=== PATIENT | female | born 1995 | race Caucasian/White ===

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

== ENCOUNTER 2017-01-11 12:57 | Emergency (ER) | payer OTHER ==
[~2017-01-11] VITALS: Ht 162.6 cm; Wt 87.1 kg
[~2017-01-11 12:57] MED LIST: HYDR-971 PO; NITR100C62 PO; ONDA4TAB7 PO
--- NOTE | 2017-01-11 13:12 | PHYS DOC ---
Past Medical History Past Medical History: No Pertinent History Past Surgical History: Tonsillectomy Additional Past Surgical Histo: hernia repair and gastric sleeve Alcohol Use: None Drug Use: None Adult General Chief Complaint Chief Complaint: ABDOMINAL PAIN IN [facility] HPI Patient is a 21 year old female who presents with vaginal bleeding and cramps. She states she is partially 5 weeks . She was seen a couple weeks ago by her primary care physician and confirmed her and she was told to follow-up with her OB at [place]. She states in September she had a gastric sleeve placed by Dr. Reno. She states that she's had some nausea over since her gastric sleeve was placed so she's not sure if it's her gastric sleeve for her is causing some of her nausea. She denies any vomiting. She states yesterday she noticed a drop of blood in her underwear and then today when she wiped she noticed some more blood. She states she's been having cramps in her bilateral pelvic area also. She states her last sexual intercourse was approximately 3 days ago. 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 She states she's never been before. Review of Systems Review of Systems Constitutional: Denies fever or chills [] Eyes: Denies change in visual acuity, redness, or eye pain [] HENT: Denies nasal congestion or sore throat [] Respiratory: Denies cough or shortness of breath [] Cardiovascular: No additional information not addressed in HPI [] GI: Denies abdominal pain, nausea, vomiting, bloody stools or diarrhea [] : Denies dysuria or hematuria [] Musculoskeletal: Denies back pain or joint pain [] Integument: Denies rash or skin lesions [] Neurologic: Denies headache, focal weakness or sensory changes [] Endocrine: Denies polyuria or polydipsia [] Allergies Allergies Allergies Coded Allergies Type Severity Reaction Last Updated Verified No Known Drug Allergies 11/08/14 No Physical Exam Physical Exam Constitutional: Well developed, well nourished, no acute distress, non-toxic appearance. [] HENT: Normocephalic, atraumatic, bilateral external ears normal, oropharynx moist, no oral exudates, nose normal. [] Eyes: PERRLA, EOMI, conjunctiva normal, no discharge. [] Neck: Normal range of motion, no tenderness, supple, no stridor. [] Cardiovascular:Heart rate regular rhythm, no murmur [] Lungs & Thorax: Bilateral breath sounds clear to auscultation [] Abdomen/pelvic: Bowel sounds normal, soft, no tenderness, no masses, no pulsatile masses. Pelvic area shows normal external genitalia, no active bleeding noted, no cervical motion tenderness or adnexal tenderness appreciated Skin: Warm, dry, no erythema, no rash. [] Back: No tenderness, no CVA tenderness. [] Extremities: No tenderness, no cyanosis, no clubbing, ROM intact, no edema. [] Neurologic: Alert and oriented X 3, normal motor function, normal sensory function, no focal deficits noted. [] Psychologic: Affect normal, judgement normal, mood normal. [] Current Patient Data Vital Signs Vital Signs Date Time Temp Pulse Resp B/P (MAP) Pulse Ox O2 Delivery O2 Flow Rate FiO2 01/11/17 16:00 100 22 143/88 (106) 100 Room Air 01/11/17 13:02 98.0 98.0 Lab Values Laboratory Tests Test 01/11/17 12:16 01/11/17 13:00 01/11/17 13:40 POC Urine HCG, Qualitative Hcg positive (Negative) Urine Collection Type Unknown Urine Color Jacqueline Urine Clarity Clear Urine pH 5.5 Urine Specific [place] >=1.030 Urine Protein Negative mg/dL (NEG-TRACE) Urine Glucose (UA) Negative mg/dL (NEG) Urine Ketones (Stick) Trace mg/dL (NEG) Urine Blood Large (NEG) Urine Nitrite Negative (NEG) Urine Bilirubin Small (NEG) Urine Urobilinogen Dipstick 1.0 mg/dL (0.2 mg/dL) Urine Leukocyte Esterase Small (NEG) Urine RBC 11-20 /HPF (0-2) Urine WBC 5-10 /HPF (0-4) Urine Squamous Epithelial Cells Many /LPF Urine Bacteria Few /HPF (0-FEW) Urine Mucus Marked /LPF White Blood Count 9.9 x10^3/uL (4.0-11.0) Red Blood Count 5.04 x10^6/uL (3.50-5.40) Hemoglobin 14.9 g/dL (12.0-15.5) Hematocrit 44.5 % (36.0-47.0) Mean Corpuscular Volume 88 fL (79-100) Mean Corpuscular Hemoglobin 30 pg (25-35) Mean Corpuscular Hemoglobin Concent 34 g/dL (31-37) Red Cell Distribution Width 13.7 % (11.5-14.5) Platelet Count 317 x10^3/uL (140-400) Neutrophils (%) (Auto) 66 % (31-73) Lymphocytes (%) (Auto) 26 % (24-48) Monocytes (%) (Auto) 6 % (0-9) Eosinophils (%) (Auto) 2 % (0-3) Basophils (%) (Auto) 1 % (0-3) Neutrophils # (Auto) 6.5 x10^3uL (1.8-7.7) Lymphocytes # (Auto) 2.5 x10^3/uL (1.0-4.8) Monocytes # (Auto) 0.6 x10^3/uL (0.0-1.1) Eosinophils # (Auto) 0.2 x10^3/uL (0.0-0.7) Basophils # (Auto) 0.1 x10^3/uL (0.0-0.2) Prothrombin Time 14.0 SEC (11.7-14.0) Prothrombin Time INR 1.2 (0.8-1.1) H PTT 31 SEC (24-38) Maternal Serum HCG Beta Subunit 14 mIU/mL (0-5) H Sodium Level 144 mmol/L (136-145) Potassium Level 3.6 mmol/L (3.5-5.1) Chloride Level 107 mmol/L (98-107) Carbon Dioxide Level 25 mmol/L (21-32) Anion Gap 12 (6-14) Blood Urea Nitrogen 6 mg/dL (7-20) L Creatinine 0.6 mg/dL (0.6-1.0) Estimated GFR (Cockcroft-Gault) 128.8 Glucose Level 89 mg/dL (70-99) Calcium Level 9.1 mg/dL (8.5-10.1) Total Bilirubin 0.4 mg/dL (0.2-1.0) Direct Bilirubin 0.1 mg/dL (0.0-0.2) Aspartate Amino Transferase (AST) 15 U/L (15-37) Alanine Aminotransferase (ALT) 16 U/L (14-59) Alkaline Phosphatase 99 U/L (46-116) Total Protein 7.5 g/dL (6.4-8.2) Albumin 3.9 g/dL (3.4-5.0) Laboratory Tests 01/11/17 13:40 Laboratory Tests 01/11/17 13:40 Microbiology 01/11/17 Wet Prep - Final, Complete Microbiology 01/11/17 Wet Prep - Final, Complete EKG EKG [] Radiology/Procedures Radiology/Procedures [facility] [address] [place], [place] [id number] IMAGING REPORT Signed PATIENT: CAESAR MARTINEZ ACCOUNT: [id number] : 1995 LOCATION: ER AGE: 21 SEX: F EXAM STATUS: REG ER ORD. PHYSICIAN: ULISES MATTHEWS MD REASON: vaginal bleeding PROCEDURE: OB <14 WKS W/TV Examination: Obstetric ultrasound is 14 weeks History: History of brownish spotting, cramps Comparison: None available. Findings: The uterus measures 6.9 x 3.2 x 3.7 cm. The endometrium measures 6.5 mm in transverse dimension. The right ovary measures 3.0 x 1.5 x 1.7 cm. The left ovary measures 2.6 x1.6 x 1.5 cm. Blood flow identified in the right and left ovaries. Intrauterine gestational sac is not identified. Impression: Intrauterine gestational sac is not identified. If patient is , differential includes very early , failed first trimester or an ectopic . An ectopic gestational sac is not identified. Follow-up serial quantitative beta-hCG levels and follow-up ultrasound is recommended. DICTATED and SIGNED BY: THEO MILES MD DATE: 01/11/17 3490 CC: ULISES MATTHEWS MD; HEATHER GARVEY MD ~ Impressions: Threatened miscarriage UTI and Course & Med Decision Making Course & Med Decision Making Pertinent Labs and Imaging studies reviewed. (See chart for details) RUN DATE: 01/11/17 PAGE 1 RUN TIME: 1415 [facility] [address] [place] [address] Earl Diaz M.D., Associate Merchandiser PATIENT: CAESAR MARTINEZ ACCT: [id number] LOC: DARA U : [id number] AGE/SX: ROOM: REG : 01/11/[address]: ULISES MATTHEWS MD : 1995 BED: DIS : STATUS: QUIQUE DIAMOND TLOC: SPEC #: [id number] FRANCISCO: 01/11/17 STATUS: COMP REQ #: [id number] RECD: 01/11/[address]: ULISES MATTHEWS MD SOURCE: VAGINAL ENTR: 01/11/17-[address]: HEATHER GARVEY MD SPDESC: ORDERED: WET PREP COMMENTS: Has specimen been collected/obtained? Y Procedure Result WET PREP Final YEAST NONE SEEN TRICHOMONAS NONE SEEN CLUE CELLS NONE SEEN WBCS FEW RBCS MANY SQUAMOUS EPS MANY Ultrasound does not show an IUP. Her Quant is 14. Pelvic exam is unremarkable. She is likely having a miscarriage. Spoke with Dr. Guzmán recommends repeat Quant in 2 days. Patient is being discharged with nitrofurantoin twice a day for 7 days for bacteriuria. Return precautions given to her and her brother. They're in agreement to the plan of being discharged in stable condition this time. END OF REPORT Dragon Disclaimer Dragon Disclaimer This electronic medical record was generated, in whole or in part, using a voice recognition dictation system. Departure Departure Impression: Primary Impression: Vaginal bleeding in Disposition: 01 HOME, SELF-CARE Condition: STABLE Referrals: HEATHER GARVEY MD (PCP) Patient Instructions: - Urinary Tract Infection, Threatened Miscarriage, [id number] Additional Instructions: You will need to return to the ER in 2 days to have a beta Quant rechecked. This is a blood test. You will also have some bacteria in your urine that will need to be treated. You will be sent home with antibiotic for the next 7 days. Please return back to ER in 2 days for this blood check. Return sooner for worsening bleeding, increasing pain, fevers or other concerns. Scripts Nitrofurantoin Macrocrystal (NITROFURANTOIN) 100 Mg Capsule 1 CAP PO BID, #14 CAP Prov: ULISES MATTHEWS MD 01/11/17 Problem Qualifiers Primary Impression: Vaginal bleeding in Trimester: first trimester Qualified Codes: O46.91 - Antepartum hemorrhage, unspecified, first trimester ULISES MATTHEWS MD Jan 11, 2017 13:12
[2017-01-11 13:21] LABS: BILIRUBIN,URINE SMALL (NEG); GLUCOSE,URINE NEGATIVE (NEG); NITRITE,URINE NEGATIVE (NEG); PH,URINE 5.5; PROTEIN,URINE NEGATIVE (NEG-TRACE)
[2017-01-11 13:32] LABS: BACTERIA,URINE FEW /HPF (0-FEW); SQUAMOUS EPITHELIAL CELL,UR MANY /LPF
[2017-01-11 13:49] LABS: BASO # 0.1 x10^3/uL (0.0-0.2); BASO % 1 % (0-3); EOS % 2 % (0-3); HEMATOCRIT 44.5 % (36.0-47.0); HEMOGLOBIN 14.9 g/dL (12.0-15.5); LYMPH # 2.5 x10^3/uL (1.0-4.8); LYMPH % 26 % (24-48); MEAN CORPUSCULAR HEMOGLOBIN 30 pg (25-35); MEAN CORPUSCULAR HGB CONC 34 g/dL (31-37); MEAN CORPUSCULAR VOLUME 88 fL (79-100); MONO % 6 % (0-9); NEUT % 66 % (31-73); PLATELET COUNT 317 x10^3/uL (140-400); RED BLOOD COUNT 5.04 x10^6/uL (3.50-5.40); RED CELL DISTRIBUTION WIDTH 13.7 % (11.5-14.5); WHITE BLOOD COUNT 9.9 x10^3/uL (4.0-11.0)
[2017-01-11 13:58] LABS: INR 1.2 (0.8-1.1)
[2017-01-11 14:01] LABS: CALCIUM 9.1 mg/dL (8.5-10.1); CREATININE 0.6 mg/dL (0.6-1.0); GFR 128.8; POTASSIUM 3.6 mmol/L (3.5-5.1)
[2017-01-11 14:08] LABS: ALBUMIN 3.9 g/dL (3.4-5.0); DIRECT BILIRUBIN 0.1 mg/dL (0.0-0.2); TOTAL BILIRUBIN 0.4 mg/dL (0.2-1.0); TOTAL PROTEIN 7.5 g/dL (6.4-8.2)
--- NOTE | 2017-01-11 15:12 | RAD ---
Examination: Obstetric ultrasound is 14 weeks History: History of brownish spotting, cramps Comparison: None available. Findings: The uterus measures 6.9 x 3.2 x 3.7 cm. The endometrium measures 6.5 mm in transverse dimension. The right ovary measures 3.0 x 1.5 x 1.7 cm. The left ovary measures 2.6 x1.6 x 1.5 cm. Blood flow identified in the right and left ovaries. Intrauterine gestational sac is not identified. Impression: Intrauterine gestational sac is not identified. If patient is , differential includes very early , failed first trimester or an ectopic . An ectopic gestational sac is not identified. Follow-up serial quantitative beta-hCG levels and follow-up ultrasound is recommended.
[2017-01-11 16:00] VITALS: BP 143/88
[2017-01-11] MEDS ORDERED: NITR100C PO (16:10)
== END 2017-01-11 16:15 | disposition home or self-care (01) ==
LOC: ER 12:57
DX: O46.91 Antepartum hemorrhage, unspecified, first trimester (principal); R10.2 Pelvic and perineal pain; Z98.890 Other specified postprocedural states; Z3A.01 Less than 8 weeks gestation of pregnancy
CPT/HCPCS: 36415; 76801; 76817; 80048; 80076; 81001; 81025; 84702; 85027; 85610; 85730; 86900; 86901; 87086; 87491; 87591; 99285; Q0111

== ENCOUNTER 2017-04-08 01:26 | Emergency (ER) | payer OTHER ==
[~2017-04-08] VITALS: Ht 160 cm; Wt 81.6 kg
[~2017-04-08 01:26] MED LIST changes: +NITR100C PO
[2017-04-08 01:47] VITALS: BP 130/67
[2017-04-08 01:53] LABS: BILIRUBIN,URINE NEGATIVE (NEG); GLUCOSE,URINE NEGATIVE (NEG); NITRITE,URINE NEGATIVE (NEG); PROTEIN,URINE NEGATIVE (NEG-TRACE); UROBILINOGEN,URINE 0.2 mg/dL (0.2 mg/dL)
[2017-04-08 02:07] LABS: BACTERIA,URINE MANY /HPF (0-FEW); WBC,URINE 20-40 /HPF (0-4)
[2017-04-08 02:08] LABS: SQUAMOUS EPITHELIAL CELL,UR MANY /LPF
[2017-04-08 02:22] LABS: BARBITURATES NEG (NEG); BENZODIAZEPINES NEG (NEG); CANNABINOIDS POS (NEG); COCAINE NEG (NEG); METHADONE NEG (NEG); OPIATES NEG (NEG); PHENCYCLIDINE NEG (NEG)
[2017-04-08] MEDS ORDERED: IV NORMAL SALINE 1000ML BAG 1,000 ML IV ONE (02:30)
[2017-04-08] MEDS ORDERED: ACETAMINOPHEN 325 MG TABLET. PO ONE (02:30)
[2017-04-08] MEDS ORDERED: METOCLOPRAMIDE HCL 10 MG/2 ML VIAL. IV ONE (02:30)
[2017-04-08 02:54] LABS: BASO % 0 % (0-3); EOS % 1 % (0-3); HEMATOCRIT 40.4 % (36.0-47.0); HEMOGLOBIN 13.9 g/dL (12.0-15.5); LYMPH % 23 % (24-48); MEAN CORPUSCULAR HEMOGLOBIN 30 pg (25-35); MEAN CORPUSCULAR HGB CONC 34 g/dL (31-37); MEAN CORPUSCULAR VOLUME 87 fL (79-100); MONO % 4 % (0-9); NEUT % 72 % (31-73); PLATELET COUNT 319 x10^3/uL (140-400); RED BLOOD COUNT 4.64 x10^6/uL (3.50-5.40); RED CELL DISTRIBUTION WIDTH 13.4 % (11.5-14.5); WHITE BLOOD COUNT 13.2 x10^3/uL (4.0-11.0)
[2017-04-08 03:07] LABS: CALCIUM 9.7 mg/dL (8.5-10.1); CREATININE 0.5 mg/dL (0.6-1.0); GFR 158.9; POTASSIUM 3.5 mmol/L (3.5-5.1)
--- NOTE | 2017-04-08 03:22 | PHYS DOC ---
Past Medical History Past Medical History: No Pertinent History Past Surgical History: Tonsillectomy Additional Past Surgical Histo: hernia repair and gastric sleeve Alcohol Use: None Drug Use: None Adult General Chief Complaint Chief Complaint: ABDOMINAL PAIN HPI HPI Patient is a 21 year old female presents with complaints of syncopal episode as well as low abdominal cramping. Patient denies any fevers, chills, rashes, trauma. Patient has complaints of mild headache. Patient denies any sick contacts. Patient denies alcohol or drug use. Patient denies any vaginal discharge or vaginal bleeding Review of Systems Review of Systems Constitutional: Denies fever or chills [] Eyes: Denies change in visual acuity, redness, or eye pain [] HENT: Denies nasal congestion or sore throat. Denies nuchal rigidity Respiratory: Denies cough or shortness of breath [] Cardiovascular: No chest pain GI: Denies abdominal pain, nausea, vomiting, bloody stools or diarrhea. Yes to abdominal cramping : Denies dysuria or hematuria [] Musculoskeletal: Denies back pain or joint pain [] Integument: Denies rash or skin lesions [] Neurologic: Denies focal weakness or sensory changes . Yes to mild headache Endocrine: Denies polyuria or polydipsia [] Current Medications Current Medications Current Medications Medications (Trade) Dose Ordered Sig/Arturo Start Time Stop Time Status Last Admin Dose Admin Acetaminophen (Tylenol) 650 mg 1X ONCE 04/08/17 02:30 04/08/17 02:31 DC 04/08/17 03:01 650 MG Metoclopramide HCl (Reglan) 10 mg 1X ONCE 04/08/17 02:30 04/08/17 02:31 DC 04/08/17 03:01 10 MG Sodium Chloride 1,000 ml @ 1,000 mls/hr 1X ONCE 04/08/17 02:30 04/08/17 03:29 DC 04/08/17 03:00 1,000 MLS/HR Allergies Allergies Allergies Coded Allergies Type Severity Reaction Last Updated Verified No Known Drug Allergies 11/08/14 No Physical Exam Physical Exam Constitutional: Well developed, well nourished, no acute distress, non-toxic appearance. [] HENT: Normocephalic, atraumatic, bilateral external ears normal, oropharynx moist, no oral exudates, nose normal. [] Eyes: PERRLA, pupils are dilated, EOMI, conjunctiva normal, no discharge. [] Neck: Normal range of motion, no tenderness, supple, no stridor. [No LAD no meningeal signs Cardiovascular:Heart rate regular rhythm, no murmur [] Lungs & Thorax: Bilateral breath sounds clear to auscultation [] Abdomen: Bowel sounds normal, soft, no tenderness, no masses, no pulsatile masses. [] Skin: Warm, dry, no erythema, no rash. [] Back: No tenderness, no CVA tenderness. [] Extremities: No tenderness, no cyanosis, no clubbing, ROM intact, no edema. [] Neurologic: Alert and oriented X 3, normal motor function, normal gross sensory function, no focal deficits noted. [] Psychologic: Affect normal, judgement normal, mood normal. [] Current Patient Data Vital Signs Vital Signs Date Time Temp Pulse Resp B/P (MAP) Pulse Ox O2 Delivery O2 Flow Rate FiO2 04/08/17 01:47 98.3 103 16 130/67 (88) 98 Room Air 98.3 Lab Values Laboratory Tests Test 04/08/17 01:40 04/08/17 01:47 04/08/17 02:45 Urine Collection Type Unknown Urine Color Yellow Urine Clarity Clear Urine pH 6.0 Urine Specific [place] 1.020 Urine Protein Negative mg/dL (NEG-TRACE) Urine Glucose (UA) Negative mg/dL (NEG) Urine Ketones (Stick) >=80 mg/dL (NEG) Urine Blood Negative (NEG) Urine Nitrite Negative (NEG) Urine Bilirubin Negative (NEG) Urine Urobilinogen Dipstick 0.2 mg/dL (0.2 mg/dL) Urine Leukocyte Esterase Moderate (NEG) Urine RBC 6-10 /HPF (0-2) Urine WBC 20-40 /HPF (0-4) Urine Squamous Epithelial Cells Many /LPF Urine Bacteria Many /HPF (0-FEW) Urine Mucus Mod /LPF Urine Opiates Screen Neg (NEG) Urine Methadone Screen Neg (NEG) Urine Barbiturates Neg (NEG) Urine Phencyclidine Screen Neg (NEG) Urine Amphetamine/Methamphetamine Pos (NEG) Urine Benzodiazepines Screen Neg (NEG) Urine Cocaine Screen Neg (NEG) Urine Cannabinoids Screen Pos (NEG) Urine Ethyl Alcohol Neg (NEG) POC Urine HCG, Qualitative Hcg positive (Negative) White Blood Count 13.2 x10^3/uL (4.0-11.0) H Red Blood Count 4.64 x10^6/uL (3.50-5.40) Hemoglobin 13.9 g/dL (12.0-15.5) Hematocrit 40.4 % (36.0-47.0) Mean Corpuscular Volume 87 fL (79-100) Mean Corpuscular Hemoglobin 30 pg (25-35) Mean Corpuscular Hemoglobin Concent 34 g/dL (31-37) Red Cell Distribution Width 13.4 % (11.5-14.5) Platelet Count 319 x10^3/uL (140-400) Neutrophils (%) (Auto) 72 % (31-73) Lymphocytes (%) (Auto) 23 % (24-48) L Monocytes (%) (Auto) 4 % (0-9) Eosinophils (%) (Auto) 1 % (0-3) Basophils (%) (Auto) 0 % (0-3) Neutrophils # (Auto) 9.5 x10^3uL (1.8-7.7) H Lymphocytes # (Auto) 3.0 x10^3/uL (1.0-4.8) Monocytes # (Auto) 0.6 x10^3/uL (0.0-1.1) Eosinophils # (Auto) 0.1 x10^3/uL (0.0-0.7) Basophils # (Auto) 0.0 x10^3/uL (0.0-0.2) Sodium Level 137 mmol/L (136-145) Potassium Level 3.5 mmol/L (3.5-5.1) Chloride Level 102 mmol/L (98-107) Carbon Dioxide Level 26 mmol/L (21-32) Anion Gap 9 (6-14) Blood Urea Nitrogen 4 mg/dL (7-20) L Creatinine 0.5 mg/dL (0.6-1.0) L Estimated GFR (Cockcroft-Gault) 158.9 Glucose Level 89 mg/dL (70-99) Calcium Level 9.7 mg/dL (8.5-10.1) Laboratory Tests 04/08/17 02:45 Laboratory Tests 04/08/17 02:45 EKG EKG 0315 sinus rhythm, 78, no STEMI[] Radiology/Procedures Radiology/Procedures Single viable intrauterine gestation with a mean gestational age estimated at 8 weeks 6 days with an estimated date of confinement of 11/12/2017. This corresponds adequately with clinical dates.[] Course & Med Decision Making Course & Med Decision Making Pertinent Labs and Imaging studies reviewed. (See chart for details) [id number] patient in no acute distress, sitting up in the bed, in no discomfort. Patient informal the results of the ultrasound as well as the labs. In private, I have discussed the results of the urine toxicology test with the patient. Patient states she has not used marijuana in over 4 weeks and she does not have an explanation regarding the positive methamphetamine test. I counseled the patient regarding drug use in [] Dragon Disclaimer Dragon Disclaimer This electronic medical record was generated, in whole or in part, using a voice recognition dictation system. Departure Departure Impression: Primary Impression: UTI in Additional Impressions: Syncope Drug abuse Dehydration Disposition: HOME, SELF-CARE Condition: IMPROVED Referrals: HEATHER GARVEY MD (PCP) Please follow-up with your doctor for recheck and reevaluation in one to 2 days Patient Instructions: Abdominal Pain During , Dehydration, Adult, Drug Abuse, FAQs, Syncope, Urinary Tract Infection Scripts Nitrofurantoin Monohyd/M-Cryst (MACROBID 100 MG CAPSULE) 100 Mg Capsule 1 CAP PO BID, #14 CAP Prov: Teddy WELCH MD 04/08/17 Problem Qualifiers Teddy WELCH MD Apr 08, 2017 03:22
--- NOTE | 2017-04-08 04:05 | RAD ---
Obstetric ultrasound less than 14 weeks: Reason for examination: Low back pain and abdominal pain with . Transabdominal and transvaginal ultrasound examination of the pelvis was performed. Transabdominally, the uterus measures 8.8 x 5.0 x 6.5 cm in greatest dimension. There appears to be intrauterine gestational sac present measuring 5.3 x 1.6 cm in greatest dimension. pole and yolk sac are identified. Cardiac activity seen with a rate of 160 bpm. Transvaginally, the intrauterine gestational sac contains fetus and yolk sac. [place]-rump length is estimated at 2.1 cm corresponding to gestational age of 8 weeks 6 days. There is no evidence of subchorionic hemorrhage. In the left adnexa, the left ovary is visualized and appears to measure 2.2 x 1.4 x 1.4 cm in greatest dimension and shows good vascular flow. The right ovary is not identified. No free fluid is seen. IMPRESSION: Single viable intrauterine gestation with a mean gestational age estimated at 8 weeks 6 days with an estimated date of confinement of 11/12/2017. This corresponds adequately with clinical dates. Electronically signed by: Sonja Ashraf MD (04/08/2017 4:01 AM) [id number]
[2017-04-08] MEDS ORDERED: NITR100C62 PO (04:39)
--- NOTE | 2017-04-08 07:01 | EKG ---
[facility] [address] [place] [address] Test Date: 2017-04-08 Test Time: 03:14:44 Pat Name: CAESAR MARTINEZ Department: Room: Gender: F Research Physicist: : 1995 Requested By: Teddy WELCH Order Number: [id number] Reading MD: Sean Abdi Measurements Intervals [place] Rate: 78 P: 64 [place]: 150 QRS: 65 QRSD: 70 T: 20 QT: 374 QTc: 430 Interpretive Statements SINUS RHYTHM Electronically Signed On 04-30-2017 16:01:50 CDT by Sean Abdi
== END 2017-04-08 05:15 | disposition home or self-care (01) ==
LOC: ER 01:26
DX: O23.41 Unspecified infection of urinary tract in pregnancy, first trimester (principal); O26.891 Other specified pregnancy related conditions, first trimester; R55 Syncope and collapse; O99.281 Endocrine, nutritional and metabolic diseases complicating pregnancy, first trimester; E86.0 Dehydration; O99.321 Drug use complicating pregnancy, first trimester; F15.10 Other stimulant abuse, uncomplicated; Z3A.08 8 weeks gestation of pregnancy
CPT/HCPCS: 36415; 76801; 80048; 80307; 81001; 81025; 85025; 87086; 93005; 96361; 96374; 99285; J2765; J7030; G0479

== ENCOUNTER → 2017-06-11 | Outpatient (CLI) | payer OTHER ==
--- NOTE | 2017-06-11 12:39 | KCIC ---
OB ultrasound History: Uterine size discrepancy. Comparison: Ultrasound OB April 08, 2017. Findings: There is a single intrauterine gestation in cephalic presentation. The placenta is anterior in location without evidence of placenta previa. The amount of amniotic fluid appears appropriate. Amniotic fluid index is 10.4 cm. Cervix is closed with cervical length of 4.81 cm. Biometric data is as follows: BPD = 4.13 cm for 18 weeks 4 days. HC = 15.04 cm for 18 weeks 1 days. AC = 13.21 cm for 18 weeks 5 days. FL = 2.86 cm for 18 weeks 5 days. HC/AC = 1.14, within normal limits. Overall, the average ultrasound age is 18 weeks 4 days for an estimated date of delivery of November 08, 2017. Estimated gestational age by last menstrual period calculation is 17 weeks 5 days. Estimated weight is 252 +/- 37 grams. Optimal four-chamber view of the heart was not obtained. The estimated heart rate is 139 beats per minute. Bilateral upper and lower extremities are thought visualized. Three-vessel cord is not adequately documented. Cord insertion is not well documented. stomach and urinary bladder are identified. Both kidneys are thought visualized. The spine and brain are grossly unremarkable. Nose and lips are not well seen. gender appears male. Maternal ovaries are not visualized. IMPRESSION: 1. Single live intrauterine with average ultrasound age of 18 weeks 4 days. Estimated date of delivery is November 08, 2017. There has been appropriate interval growth. 2. Multiple structures were not well documented, which may be due to a variety of factors including early gestation and positioning. Follow-up imaging could be performed in approximately 4 weeks. Electronically signed by: Juan Carlos Renae MD (06/11/2017 12:36 PM) [place] [id number]
== END | disposition home or self-care (01) ==
LOC: KCIC US 08:51
PROVIDERS: ATTEND Obstetrics & Gynecology
DX: Z34.82 Encounter for supervision of other normal pregnancy, second trimester (principal); Z3A.18 18 weeks gestation of pregnancy
CPT/HCPCS: 76805; 76817

== ENCOUNTER 2017-10-19 02:28 | Observation (INO) | payer OTHER ==
[2017-10-19 03:01] LABS: BILIRUBIN,URINE NEGATIVE (NEG); CLARITY,URINE CLEAR; COLOR,URINE YELLOW; GLUCOSE,URINE NEGATIVE (NEG); NITRITE,URINE NEGATIVE (NEG); PH,URINE 6.5; PROTEIN,URINE NEGATIVE (NEG-TRACE)
[2017-10-19 03:11] LABS: BACTERIA,URINE MODERATE /HPF (0-FEW); RBC,URINE 0 /HPF (0-2); SQUAMOUS EPITHELIAL CELL,UR MANY /LPF
[2017-10-19] MEDS: IV RINGERS,LACTATED 1000ML 1,000 ML IV ×2 (06:40→07:51)
[2017-10-19] MEDS: hydrOXYzine PAMOATE 25 MG CAPSULE PO (08:13)
== END 2017-10-19 11:32 | disposition home or self-care (01) ==
LOC: 3 SO LND 02:28
DX: O42.913 Preterm premature rupture of membranes, unspecified as to length of time between rupture and onset of labor, third trimester (principal); O99.89 Other specified diseases and conditions complicating pregnancy, childbirth and the puerperium; M54.9 Dorsalgia, unspecified; Z3A.36 36 weeks gestation of pregnancy
CPT/HCPCS: 76816; 81001; 87086; 96360; 96361; G0378; G0379; J7120; Q0177

== ENCOUNTER 2017-11-03 15:03 | Observation (INO) | payer OTHER | END 2017-11-03 16:55 | disposition home or self-care (01) | LOC: 3 SO LND 15:03 | DX: O62.9 Abnormality of forces of labor, unspecified (principal); Z3A.38 38 weeks gestation of pregnancy | CPT/HCPCS: G0378; G0379 ==

== ENCOUNTER → 2018-12-23 | Outpatient (CLI) | payer OTHER ==
[2017-11-10 09:52] VITALS: BP 112/74
[~2018-12-23] MED LIST changes: +HYDR-3164 PO; -HYDR-971 PO; +IBUP800T19 PO
--- NOTE | 2018-12-25 08:23 | KCIC ---
Obstetrical ultrasound, 12/23/2018: HISTORY: Uterine size/date discrepancy There is a single intrauterine fetus in a cephalic orientation. The biparietal diameter measures 4.3 cm compatible with a gestational age of 19 weeks and 1 day. The average gestational age based on all the measurements is 19 weeks and 2 days yielding a sonographic EDC of 05/17/2019. Normal activity and heart motion were seen. A 4 chamber heart is evident demonstrating heart rate of 143 bpm. Fluid is identified in the bladder and stomach. The visualized portions of the kidneys and spine are unremarkable. A three-vessel umbilical cord is evident with a normal cord insertion site. The placenta lies posteriorly. Its lower margin lies approximately 2.5 cm from the internal cervical os. No placenta previa is evident. A normal amount of amniotic fluid is present with the CHASIDY calculated at 10. The cervical length was estimated at 5 cm. IMPRESSION: Single viable intrauterine fetus of 19-20 weeks gestational age as described above. Electronically signed by: Haroldo Swan MD (12/25/2018 8:20 AM) [facility]
== END | disposition home or self-care (01) ==
LOC: KCIC US 10:00
PROVIDERS: ATTEND Obstetrics & Gynecology
DX: O26.842 Uterine size-date discrepancy, second trimester (principal); Z3A.19 19 weeks gestation of pregnancy
CPT/HCPCS: 76805

== ENCOUNTER 2019-03-20 03:22 | Observation (INO) | payer OTHER ==
[2017-11-10 09:52] VITALS: BP 112/74
[~2019-03-20] VITALS: Ht 152.4 cm; Wt 98.0 kg
[2019-03-20 03:50] LABS: BILIRUBIN,URINE NEGATIVE (NEG); CLARITY,URINE CLEAR; COLOR,URINE YELLOW; NITRITE,URINE NEGATIVE (NEG); PROTEIN,URINE 30 mg/dL (NEG-TRACE); UROBILINOGEN,URINE 0.2 mg/dL (0.2 mg/dL)
[2019-03-20 03:55] LABS: SQUAMOUS EPITHELIAL CELL,UR MOD /LPF
[2019-03-20 03:56] LABS: BACTERIA,URINE FEW /HPF (0-FEW)
[2019-03-20 03:57] LABS: AMORPHOUS SEDIMENT,UR PRESENT /HPF
[2019-03-20 04:01] LABS: BARBITURATES NEG (NEG); BENZODIAZEPINES POS (NEG); CANNABINOIDS POS (NEG); COCAINE NEG (NEG); METHADONE NEG (NEG); OPIATES POS (NEG); PHENCYCLIDINE NEG (NEG)
[2019-03-20 04:02] LABS: AMNIO PT NEGATIVE
[2019-03-20 04:03] LABS: AMPHETAMINE/METHAMPHETAMINE NEG (NEG)
[2019-03-20] MEDS ORDERED: IV NORMAL SALINE 1000ML BAG 1,000 ML IV ONE (05:00)
[2019-03-20] MEDS ORDERED: cefTRIAXone IV Push 1 GM VIAL. IVP SCH (05:00)
[2019-03-20] MEDS: IV RINGERS,LACTATED 1000ML 1,000 ML IV PRN ×4 (05:58→22:35)
--- NOTE | 2019-03-20 10:23 | RAD ---
Examination: PREG MORE THAN OR EQ TO 14 WKS History: Bleeding. Low lying placenta on previous ultrasound. At 32 weeks gestation. Comparison/Correlation: 12/23/2018 ultrasound exam Findings: OB ultrasound exam was performed by transabdominal technique only as per referring physician request. Single living intrauterine gestation is present. The placenta is identified to 0.8 cm from the cervix. Cervical os appears to be closed. Maternal cervical length is 4.32 cm. Evaluation is limited due to positioning of the head about the placenta. Cephalic lie noted. heart rate is 131 bpm. Amniotic fluid index is 11.1 cm and normal in volume. motion identified. Estimated weight is 2102 g +/- 311 g. This corresponds to the 62nd percentile. EDC is 05/17/2019 by clinical age of 31 weeks 5 days. Ultrasound EDC is 05/10/2019 by average ultrasound age of 32 weeks 5 days. Cephalic index is 81.2. Head circumference to abdominal circumference ratio is 0.98. Femur length to biparietal diameter ratio 79.1. Femur length to head circumference ratio is 21.7. Femur length relates to head circumference ratio is 21.7 cm. Femur length to abdominal circumference ratio is 21.4. These ratios are within normal range. Biparietal diameter is 7.99 cm corresponding to 30 weeks 1 day gestation. Head circumference is 29.02 cm corresponding to 30 weeks 1 day gestation. Abdominal circumference is 29.56 cm corresponding to 33 weeks 4 days gestation. Femur length is 6.33 cm corresponding to 32 weeks 5 day gestation. Estimated weight corresponding to 33 weeks gestation. Impression: Single living intrauterine gestation is present with average ultrasound age of 32 weeks 5 days. This is 1 week greater than a clinical age. Low lying placenta is present along the maternal left side. Cervix is closed. Assessment is somewhat limited due to positioning of the cephalic lie and positioning of the head. No subchronic hemorrhage. Electronically signed by: Isaak Vargas MD (03/20/2019 10:20 AM) [facility]
[2019-03-20 11:17] LABS: BASO # 0.1 x10^3/uL (0.0-0.2); BASO % 0 % (0-3); EOS # 0.4 x10^3/uL (0.0-0.7); EOS % 2 % (0-3); HEMATOCRIT 29.7 % (36.0-47.0); HEMOGLOBIN 9.9 g/dL (12.0-15.5); LYMPH # 2.5 x10^3/uL (1.0-4.8); LYMPH % 15 % (24-48); MEAN CORPUSCULAR HEMOGLOBIN 28 pg (25-35); MEAN CORPUSCULAR HGB CONC 33 g/dL (31-37); MEAN CORPUSCULAR VOLUME 83 fL (79-100); MONO # 0.8 x10^3/uL (0.0-1.1); MONO % 5 % (0-9); NEUT # 13.3 x10^3/uL (1.8-7.7); NEUT % 78 % (31-73); PLATELET COUNT 299 x10^3/uL (140-400); RED BLOOD COUNT 3.57 x10^6/uL (3.50-5.40); RED CELL DISTRIBUTION WIDTH 14.3 % (11.5-14.5); WHITE BLOOD COUNT 17.1 x10^3/uL (4.0-11.0)
[2019-03-20 11:33] LABS: % BANDS 8 % (0-9); % BASOS 1 % (0-3); % LYMPHS 13 % (24-48); % MYELOS 1 % (0-0)
[2019-03-20 11:36] LABS: % MONOS 3 % (0-10); PLT ESTIMATE ADEQUATE (ADEQUATE)
[2019-03-20 11:37] LABS: OVALOCYTES FEW; POLYCHROMASIA SLIGHT
[2019-03-20 11:38] LABS: % EOS 1 % (0-5); % SEGS 73 % (35-66)
--- NOTE | 2019-03-20 14:01 | PDOC1 ---
OB - History Hx of Present Care: Limited Care Ultrasounds: Abnormal US findings (Marginal placenta previa) Obstetrical Complications: Other (vaginal bleeding 3rd trimester) Medical Complications: None, Other (h/o gastric bypass) Past Family/Social History * Past Medical, Surgical, Family and Obstetric Histories reviewed from chart. Rubella: Immune RPR/VDRL: Negative GBS Status: Unknown HBsAG: Negative OB - Chief Complaint & HPI Date of Admission: Date of Admission: Mar 20, 2019 at 03:22 Chief Complaint/History : 2 Para: 1 EGA: 32 Reason for admission: vaginal bleeding Admission Nurse Assessment Rev: Yes OB - Admission Exam Physical Exam HEENT: Normal Heart: Regular Rate Lungs: Clear Abdomen: Gravid, Non tender, Soft Extremities: Edema Reflexes: Normal Cervical Dilatation: Fingertip Effacement: 0% Station: Ballotable Membranes: Intact Amniotic Fluid: Thick Meconium Accelerations: Accelerations Present Decelerations: No decelerations Contractions on Admission: None Text A: 32 wks IUP Vaginal bleeding Marginal placenta previa P: Admit IV hydration and observation for any further vaginal bleeding. Plan for c/s at 36 wks gestation. If any further vaginal bleeding, then start corticosteroids. CRYSTAL GARVEY Jr, MD Mar 20, 2019 14:01
[2019-03-20] MEDS ORDERED: NICOTINE 21MG PATCH. TD SCH (17:00)
--- NOTE | 2019-03-21 05:57 | PDOC3 ---
OB DISCHARGE SUMMARY DATE OF ADMISSION: 03/20/19 DATE OF DISCHARGE: 03/21/19 REASON FOR ADMISSION: Observation/evaluation, Vaginal bleeding PROCEDURES: None OPERATIONS: None DISCHARGE DIAGNOSIS: Antepartum Bleeding (Marginal Placenta Previa) DISCHARGE INFORMATION: Activity (modified bed rest; pelvic rest remainder of ), Diet (regular), Instructions (pelvic rest and modified bed rest remainder of ) HOSPITAL COURSE 32 wks gestation with vaginal bleeding diagnosed with marginal placenta previa. CRYSTAL GARVEY Jr, MD Mar 21, 2019 05:57
--- NOTE | 2019-03-21 06:01 | DISCH ---
DISCHARGE INSTRUCTIONS Condition on Discharge Condition on Discharge: Stable Activity After Discharge Activity Instructions for Disc: Other, see below (modified bed rest) Lifting Instructions after Dis: No heavy lifting Driving Instructions after Dis: Do not drive today Diet after Discharge Diet after Discharge: Regular Contacting the after DC Call your doctor for: Concerns you may have Follow-Up Follow up with: Dr. Guzmán this week. CRYSTAL GUZMÁN Jr, MD Mar 21, 2019 06:01
== END 2019-03-21 06:19 | disposition home or self-care (01) ==
LOC: 3 SO LND 03:22
PROVIDERS: ADMIT Obstetrics & Gynecology; ATTEND Obstetrics & Gynecology
DX: O44.33 Partial placenta previa with hemorrhage, third trimester (principal); Z3A.32 32 weeks gestation of pregnancy
CPT/HCPCS: 36415; 76805; 80307; 81001; 84112; 85007; 85025; 86850; 86900; 86901; 96374; G0378; G0379; J0696; J7030; J7120

== ENCOUNTER 2019-04-13 10:14 | Observation (INO) | payer OTHER ==
[2017-11-10 09:52] VITALS: BP 112/74
[2019-04-13] MEDS ORDERED: BETAMET ACET&NA PHOS 30 MG/5 ML VIAL. IM SCH (11:00)
== END 2019-04-13 11:00 | disposition home or self-care (01) ==
LOC: 3 SO LND 10:14
PROVIDERS: ADMIT Obstetrics & Gynecology; ATTEND Obstetrics & Gynecology
DX: Z34.93 Encounter for supervision of normal pregnancy, unspecified, third trimester (principal); Z3A.34 34 weeks gestation of pregnancy
CPT/HCPCS: 96372; G0378; G0379; J0702

== ENCOUNTER 2019-04-14 09:56 | Observation (INO) | payer OTHER ==
[2017-11-10 09:52] VITALS: BP 112/74
[2019-04-14] MEDS ORDERED: BETAMET ACET&NA PHOS 30 MG/5 ML VIAL. IM ONE (10:15)
== END 2019-04-14 10:15 | disposition home or self-care (01) ==
LOC: 3 SO LND 09:56
PROVIDERS: ADMIT Obstetrics & Gynecology; ATTEND Obstetrics & Gynecology
DX: Z34.93 Encounter for supervision of normal pregnancy, unspecified, third trimester (principal); Z3A.34 34 weeks gestation of pregnancy
CPT/HCPCS: 96372; G0378; G0379; J0702

== ENCOUNTER 2019-04-19 06:08 | Inpatient (IN) | payer OTHER ==
[2019-04-19] VITALS (10 sets, daily range): BP systolic 94–114; BP diastolic 40–88
[~2019-04-19] VITALS: Ht 165.1 cm; Wt 104.3 kg
[2019-04-19] MEDS: IV RINGERS,LACTATED 1000ML 1,000 ML IV SCH ×2 (06:48→13:53)
[2019-04-19 07:00] LABS: HEMATOCRIT 31.3 % (36.0-47.0); HEMOGLOBIN 10.3 g/dL (12.0-15.5); RED CELL DISTRIBUTION WIDTH 15.1 % (11.5-14.5); WHITE BLOOD COUNT 19.7 x10^3/uL (4.0-11.0)
[2019-04-19] MEDS ORDERED: CITRIC ACID/SODIUM CITRATE 30 ML SOLUTION. PO ONE (07:00)
[2019-04-19 07:14] LABS: BARBITURATES NEG (NEG); BENZODIAZEPINES NEG (NEG); CANNABINOIDS POS (NEG); COCAINE NEG (NEG); METHADONE NEG (NEG); OPIATES NEG (NEG); PHENCYCLIDINE NEG (NEG)
[2019-04-19 07:16] LABS: AMPHETAMINE/METHAMPHETAMINE NEG (NEG)
[2019-04-19] MEDS ORDERED: MORPHINE PF 10 MG/10 ML AMPUL. ONE (07:29)
[2019-04-19] MEDS ORDERED: fentaNYL PF VIAL 100 MCG/2 ML VIAL ONE (07:29)
[2019-04-19] MEDS ORDERED: OXYTOCIN 10 UNIT/ML VIAL. ONE (07:29)
[2019-04-19] MEDS ORDERED: ONDANSETRON PF 4 MG/2 ML VIAL. ONE (07:29)
[2019-04-19] MEDS ORDERED: ePHEDrine PF IN SALINE 50 MG/10 ML SYRINGE. IV ONE (07:30)
[2019-04-19] MEDS ORDERED: PHENYLEPHRINE in 0.9% NACL PF 1 MG/10 ML SYRINGE. IV ONE (07:30)
--- NOTE | 2019-04-19 08:05 | PDOC1 ---
OB - History Hx of Present Care: Good Care Ultrasounds: Abnormal US findings (placenta previa) Obstetrical Complications: Other (Placenta previa; received corticosteroids) Medical Complications: None Past Family/Social History * Past Medical, Surgical, Family and Obstetric Histories reviewed from chart. Rubella: Immune RPR/VDRL: Negative GBS Status: Positive HBsAG: Negative OB - Chief Complaint & HPI Date of Admission: Date of Admission: Apr 19, 2019 at 06:08 Chief Complaint/History : 3 Para: 1 EGA: 36 Reason for admission: section Indication for : other (placenta previa) Admission Nurse Assessment Rev: Yes OB - Admission Exam Physical Exam Vitals: VS - Last 72 Hours, by Label Date Time Temp Pulse Resp B/P (MAP) Pulse Ox O2 Delivery O2 Flow Rate FiO2 04/19/19 06:49 98.5 123 18 114/72 (86) Room Air 98.5 HEENT: Normal Heart: Regular Rate Lungs: Clear Abdomen: Gravid, Non tender, Soft Extremities: Edema Reflexes: Normal Effacement: 0% Membranes: Intact Amniotic Fluid: Thick Meconium Accelerations: Accelerations Present Decelerations: No decelerations Contractions on Admission: None Text A: 36 wks IUP Placenta Previa Corticosteroids completed GBS positive P: Admit for c/s. CRYSTAL GARVEY Jr, MD Apr 19, 2019 08:05
[2019-04-19] MEDS ORDERED: KETOROLAC 30 MG/ML VIAL. IV PRN ×2 (09:15→10:00)
[2019-04-19] MEDS ORDERED: MAG HYDROX/ALUMINUM HYD/SIMETH 30 ML ORAL.SUSP PO PRN (09:15)
[2019-04-19] MEDS ORDERED: diphenhydrAMINE ORAL ELIXIR 12.5 MG/5 ML ML PO PRN (09:15)
[2019-04-19] MEDS ORDERED: ONDANSETRON PF 4 MG/2 ML VIAL. IV PRN (09:15)
[2019-04-19] MEDS ORDERED: 0.9 % SODIUM CHLORIDE 10 ML DISP.SYRIN. IV PRN (09:15)
--- NOTE | 2019-04-19 09:15 | PDOC4 ---
OB Operative Note Date: Apr 19, 2019 PRE OP DIAGNOSIS: Other (placenta previa) POST OP DIAGNOSIS: Other (Same) OPERATION PERFORMED: [facility] Surgeon Dr. Guzmán Anesthesia: Regional (Spinal) Blood Loss 800 ml Specimen placenta and infant OB Findings: Position (Vertex), Sex (Female), (8/9), Weight (2970 Gram) Complications none Additional Remarks pt. CRYSTAL Cordoba Jr, MD Apr 19, 2019 09:15
[2019-04-19] MEDS ORDERED: OXYTOCIN 30 UNIT/500 ML PREMIX 500 ML IV PRN (09:30)
[2019-04-19] MEDS ORDERED: diphenhydrAMINE 50 MG/ML VIAL IVP PRN (09:30)
[2019-04-19] MEDS ORDERED: NICOTINE 14MG PATCH. TD PRN (10:30)
--- NOTE | 2019-04-19 10:37 | OP ---
DATE OF SURGERY: PREOPERATIVE DIAGNOSES: 1. 36 weeks' intrauterine . 2. Placenta previa. 3. Status post completion, corticosteroids. POSTOPERATIVE DIAGNOSES: 1. 36 weeks' intrauterine . 2. Placenta previa. 3. Status post completion, corticosteroids. PROCEDURE: Primary low transverse section. SURGEON: Crystal Guzmán MD. ANESTHESIA: Spinal. ESTIMATED BLOOD LOSS: 800 mL. COMPLICATIONS: None. FINDINGS: Viable female , Apgars 8 and 9, weight 2970 g. Three-vessel cord placenta delivered manually intact. SUMMARY: A 23-year-old 3, para 1, at 36 weeks, presented for scheduled primary due to placenta previa. The patient had received corticosteroids about 5-7 days prior to the procedure. The patient was counseled on risks, benefits and expectations and voiced clear understanding to proceed. DESCRIPTION OF PROCEDURE: The patient was taken to surgery suite and placed in dorsal supine position. She was prepped with ChloraPrep and draped in sterile fashion. After adequate anesthesia, Pfannenstiel skin incision was made with scalpel down to and through the fascia. Fascia was extended laterally using curved Delcid scissors. The superior edge of fascia was grasped with two Erwin clamps and dissected free of the abdominal rectus muscles using blunt dissection along with Bovie cautery. The same process took place inferiorly. The abdominal rectus muscle dissected bluntly at the midline. Peritoneum was grasped with 2 hemostats and entered sharply with Metzenbaum scissors. This incision was extended superiorly as well as inferiorly. The Ahsan ring retractor was then placed. A low transverse hysterotomy incision was made with scalpel down to and through the amniotic sac. Hysterotomy incision was extended laterally and superiorly digitally. With the aid of fundal pressure, the infant's head was delivered in a smooth atraumatic manner. With additional fundal pressure, the anterior shoulder was delivered followed by posterior shoulder. Rest of female infant was delivered. Infant was suctioned with bulb syringe orally and nasally, umbilical cord was clamped twice and cut and the viable female was handed to waiting nursing staff. Umbilical cord blood was then obtained. Three-vessel cord placenta was delivered manually intact. The uterus was then exteriorized and cleared of clot and debris with moist lap. Hysterotomy incision was reapproximated using #1 Vicryl suture in running locked fashion. Uterus palpated firm. Fallopian tubes and ovaries appeared normal bilaterally. Posterior cul-de-sac was cleared of clot and debris with moist lap. The uterus was then returned to the abdomen. Hysterotomy incision was reviewed and was hemostatic. The pericolic gutters were cleared of clot and debris with moist lap. The Ahsan ring retractor was removed. Peritoneum was reapproximated using #1 Vicryl suture in running fashion. Fascia was reapproximated using Stratafix in a running fashion. Skin was reapproximated using 4-0 Vicryl suture in subcuticular manner. The patient tolerated the procedure well and was taken to recovery room in stable condition. Sponge and needle count correct x 3. CRYSTAL GUZMÁN MD DR: JERRY/jareth JOB#: [id number] / [id number]
--- NOTE | 2019-04-19 13:00 | NUR ---
Pt requesting her "anxiety medicine". There was nothing listed under her home medications. Patient reports that she takes Xanax 2mg twice a day. She reports that she has been taking that for over a year. She reports that she was started on that dosage and that it does not sedate her. When I checked her ext med hx and it does show that she has been filling Rx for Xanax 2mg at a [facility] pharmacy almost monthly. I called her PCP Dr. Burks to confirm her Xanax dosage. I spoke with Corby (nurse) and she verbalized that the dose was correct. Corby reported that the pt has not been seen in the office since September 07, 2018 but that she has been getting refills on her RX by calling monthly. I called Dr. Guzmán and he was not aware of her taking Xanax. Corby at Dr. Burks did not know that the patient was either. Dr. Guzmán did order Xanax 0.5mg BID prn. I notified Joy NYE in the nursing regarding pt taking large amounts of Xanax during her . Will cont. to monitor and support.
[2019-04-19] MEDS ORDERED: ALPRAZolam 0.5 MG TABLET PO PRN (14:15)
[2019-04-19] MEDS: FERROUS SULFATE 325 MG TABLET. PO SCH (17:00)
[2019-04-19] MEDS: IBUPROFEN 400 MG TABLET. PO PRN (18:42)
[2019-04-19] MEDS: DOCUSATE SODIUM 100 MG CAPSULE. PO PRN (19:27)
[2019-04-19] MEDS: ZOLPIDEM 5 MG TABLET. PO PRN (19:27)
[2019-04-19] MEDS: SIMETHICONE 80 MG TAB.CHEW PO PRN (19:27)
[2019-04-19] MEDS: oxyCODONE/APAP 5/325 1 TAB TABLET PO PRN ×2 (19:27→21:04)
[2019-04-20] MEDS: IBUPROFEN 400 MG TABLET. PO PRN ×3 (02:01→20:57)
[2019-04-20] MEDS: oxyCODONE/APAP 5/325 1 TAB TABLET PO PRN ×5 (02:02→20:57)
[2019-04-20 02:05] VITALS: BP 91/45
[2019-04-20 04:59] LABS: BASO # 0.1 x10^3/uL (0.0-0.2); BASO % 0 % (0-3); EOS # 0.4 x10^3/uL (0.0-0.7); EOS % 2 % (0-3); HEMATOCRIT 27.1 % (36.0-47.0); HEMOGLOBIN 8.9 g/dL (12.0-15.5); LYMPH % 20 % (24-48); MEAN CORPUSCULAR HEMOGLOBIN 26 pg (25-35); MEAN CORPUSCULAR HGB CONC 33 g/dL (31-37); MEAN CORPUSCULAR VOLUME 79 fL (79-100); MONO # 0.9 x10^3/uL (0.0-1.1); MONO % 6 % (0-9); NEUT # 10.8 x10^3/uL (1.8-7.7); NEUT % 72 % (31-73); PLATELET COUNT 285 x10^3/uL (140-400); RED BLOOD COUNT 3.45 x10^6/uL (3.50-5.40); RED CELL DISTRIBUTION WIDTH 15.3 % (11.5-14.5)
[2019-04-20 06:40] VITALS: BP 115/68
[2019-04-20] MEDS: DOCUSATE SODIUM 100 MG CAPSULE. PO PRN ×2 (09:58→19:25)
[2019-04-20] MEDS: FERROUS SULFATE 325 MG TABLET. PO SCH ×2 (09:58→19:26)
[2019-04-20] MEDS: SIMETHICONE 80 MG TAB.CHEW PO PRN (09:58)
[2019-04-20 12:00] VITALS: BP 106/55
--- NOTE | 2019-04-20 12:14 | NUR ---
SS following up with referral regarding "positive UDS for Marijuana. Mother was positive for benzos during and was prescribed Xanax. Mother reports she has been on Xanax for several years and did not take with her last , but her father during this and she continued taking Xanax. Mother has a 17 month old son which she has custody of." SS met with mother and family in room to assess circumstances surrounding the referral. Mother admitted to using prescribed Xanax 2mg BID during prescribed by Dr. Tirso Tenorio. She reported that dose was increased during due to the trauma of her father dying. SS discussed with mother RN who contacted Dr. Tenorio office and verified that the Xanax was prescribed. Mother admitted to THC use but no other drug use. Mother has 17 month old son in home and lives with infants father. Mother reported no other behavioral health history and no DCF history. Mother reported having good family support and all supplies needed for to include carseat. Mother declined [facility] stating they would provide formula for out of pocket. Mother reported that infants father works and they have good transportation. Mother identified infants crime data specialist as Dr. Abdon Shrestha. Mother denied any domestic issues in the home. SS discussed DCF hotline report for positive Marijuana with mother. Mother reported understanding. DCF hotline report made. Intake# [id number]. Infant and mother RN notified.
--- NOTE | 2019-04-20 13:44 | PDOC ---
OB Progress Note Date of Service 04/20/19 Time of Evaluation 1345 Notes Pt. feeling well. Pain controlled. Pt. reports h/o anxiety and taking Xanax 2 mg BID during was prescribed by PCP. Lab Laboratory Tests Test 04/19/19 06:30 04/19/19 06:35 04/20/19 04:50 Urine Opiates Screen Neg (NEG) Urine Methadone Screen Neg (NEG) Urine Barbiturates Neg (NEG) Urine Phencyclidine Screen Neg (NEG) Urine Amphetamine/Methamphetamine Neg (NEG) Urine Benzodiazepines Screen Neg (NEG) Urine Cocaine Screen Neg (NEG) Urine Cannabinoids Screen Pos (NEG) Urine Ethyl Alcohol Neg (NEG) White Blood Count 19.7 x10^3/uL (4.0-11.0) 15.0 x10^3/uL (4.0-11.0) Red Blood Count 4.00 x10^6/uL (3.50-5.40) 3.45 x10^6/uL (3.50-5.40) Hemoglobin 10.3 g/dL (12.0-15.5) 8.9 g/dL (12.0-15.5) Hematocrit 31.3 % (36.0-47.0) 27.1 % (36.0-47.0) Mean Corpuscular Volume 78 fL (79-100) 79 fL (79-100) Mean Corpuscular Hemoglobin 26 pg (25-35) 26 pg (25-35) Mean Corpuscular Hemoglobin Concent 33 g/dL (31-37) 33 g/dL (31-37) Red Cell Distribution Width 15.1 % (11.5-14.5) 15.3 % (11.5-14.5) Platelet Count 417 x10^3/uL (140-400) 285 x10^3/uL (140-400) Treponema pallidum Antibody Nonreactive (Nonreactive) Neutrophils (%) (Auto) 72 % (31-73) Lymphocytes (%) (Auto) 20 % (24-48) Monocytes (%) (Auto) 6 % (0-9) Eosinophils (%) (Auto) 2 % (0-3) Basophils (%) (Auto) 0 % (0-3) Neutrophils # (Auto) 10.8 x10^3/uL (1.8-7.7) Lymphocytes # (Auto) 3.0 x10^3/uL (1.0-4.8) Monocytes # (Auto) 0.9 x10^3/uL (0.0-1.1) Eosinophils # (Auto) 0.4 x10^3/uL (0.0-0.7) Basophils # (Auto) 0.1 x10^3/uL (0.0-0.2) Laboratory Tests Test 04/20/19 04:50 White Blood Count 15.0 x10^3/uL (4.0-11.0) Red Blood Count 3.45 x10^6/uL (3.50-5.40) Hemoglobin 8.9 g/dL (12.0-15.5) Hematocrit 27.1 % (36.0-47.0) Mean Corpuscular Volume 79 fL (79-100) Mean Corpuscular Hemoglobin 26 pg (25-35) Mean Corpuscular Hemoglobin Concent 33 g/dL (31-37) Red Cell Distribution Width 15.3 % (11.5-14.5) Platelet Count 285 x10^3/uL (140-400) Neutrophils (%) (Auto) 72 % (31-73) Lymphocytes (%) (Auto) 20 % (24-48) Monocytes (%) (Auto) 6 % (0-9) Eosinophils (%) (Auto) 2 % (0-3) Basophils (%) (Auto) 0 % (0-3) Neutrophils # (Auto) 10.8 x10^3/uL (1.8-7.7) Lymphocytes # (Auto) 3.0 x10^3/uL (1.0-4.8) Monocytes # (Auto) 0.9 x10^3/uL (0.0-1.1) Eosinophils # (Auto) 0.4 x10^3/uL (0.0-0.7) Basophils # (Auto) 0.1 x10^3/uL (0.0-0.2) Medications Current Medications Ringer's Solution 1,000 ml @ 125 mls/hr Q8H IV Last administered on 04/19/19at 13:53; Start 04/19/19 at 07:00; Stop 04/20/19 at 07:18; Status DC Cefazolin Sodium/ Dextrose 50 ml @ 100 mls/hr 1X ONCE IV Last administered on 04/19/19at 06:47; Start 04/19/19 at 07:00; Stop 04/19/19 at 07:29; Status DC Citric Acid/ Sodium Citrate (Bicitra) 30 ml 1X ONCE PO Last administered on 04/19/19at 09:26; Start 04/19/19 at 07:00; Stop 04/19/19 at 07:01; Status DC Ondansetron HCl (Zofran) 4 mg STK-MED ONCE .ROUTE ; Start 04/19/19 at 07:29; Stop 04/19/19 at 07:29; Status DC Oxytocin (Pitocin) 10 unit STK-MED ONCE .ROUTE ; Start 04/19/19 at 07:29; Stop 04/19/19 at 07:29; Status DC Morphine Sulfate (Morphine Preservative Free) 10 mg STK-MED ONCE .ROUTE ; Start 04/19/19 at 07:29; Stop 04/19/19 at 07:29; Status DC Fentanyl Citrate (Fentanyl 2ml Vial) 100 mcg STK-MED ONCE .ROUTE ; Start 04/19/19 at 07:29; Stop 04/19/19 at 07:30; Status DC Ephedrine Sulfate (ePHEDrine PF IN SALINE SYRINGE) 50 mg STK-MED ONCE IV ; Start 04/19/19 at 07:30; Stop 04/19/19 at 07:30; Status DC Phenylephrine HCl (PHENYLEPHRINE in 0.9% NACL PF) 1 mg STK-MED ONCE IV ; Start 04/19/19 at 07:30; Stop 04/19/19 at 07:31; Status DC Sodium Chloride (Normal Saline Flush) 3 ml QSHIFT PRN IV AFTER MEDS AND BLOOD DRAWS; Start 04/19/19 at 09:15 Oxytocin/Sodium Chloride 500 ml @ 125 mls/hr CONT PRN IV EXCESSIVE POST- BLEEDING; Start 04/19/19 at 09:30; Stop 04/19/19 at 09:31; Status DC Ibuprofen (Motrin) 800 mg PRN Q4HRS PRN PO INFLAMMATION Last administered on 04/20/19at 09:59; Start 04/19/19 at 09:15 Ondansetron HCl (Zofran) 4 mg PRN Q6HRS PRN IV NAUSEA/VOMITING; Start 04/19/19 at 09:15 Docusate Sodium (Colace) 100 mg PRN BID PRN PO CONSTIPATION Last administered on 04/20/19 09:58; Start 04/19/19 at 09:15 Al Hydroxide/Mg Hydroxide (Mylanta Plus Xs) 30 ml PRN Q4HRS PRN PO HEARTBURN / GAS; Start 04/19/19 at 09:15 Simethicone (Gas-X) 80 mg PRN AFTMEALHC PRN PO GAS / BLOATING Last administered on 04/20/19 09:58; Start 04/19/19 at 09:15 Diphenhydramine HCl (Benadryl Oral Elixir) 12.5 mg PRN Q6HRS PRN PO ITCHING; Start 04/19/19 at 09:15 Ferrous Sulfate (Feosol) 325 mg BIDWMEALS PO Last administered on 04/20/19 09:58; Start 04/19/19 at 17:00 Zolpidem Tartrate (Ambien) 5 mg PRN QHS PRN PO INSOMNIA, MAY REPEAT X1 Last administered on 04/19/19at 19:27; Start 04/19/19 at 09:15 Oxycodone/ Acetaminophen (Percocet 5/325) 2 tab PRN Q4HRS PRN PO MODERATE PAIN, SEVERE PAIN Last administered on 04/20/19at 12:06; Start 04/19/19 at 09:15 Ketorolac Tromethamine (Toradol 30mg Vial) 30 mg PRN Q6HRS PRN IV PAIN Last administered on 04/19/19at 10:27; Start 04/19/19 at 09:15; Stop 04/20/19 at 07:18; Status DC Diphenhydramine HCl (Benadryl) 12.5 mg PRN Q6HRS PRN IVP ITCHING Last administered on 04/19/19at 09:42; Start 04/19/19 at 09:30 Ketorolac Tromethamine (Toradol 30mg Vial) 30 mg PRN Q6HRS PRN IV PAIN; Start 04/19/19 at 10:00; Stop 04/24/19 at 09:59; Status UNV Nicotine (Nicoderm Cq 14mg) 1 patch PRN DAILY PRN TD SMOKING CESSATION Last administered on 04/19/19at 10:42; Start 04/19/19 at 10:30 Alprazolam (Xanax) 0.5 mg PRN BID PRN PO ANXIETY / AGITATION Last administered on 04/19/19at 14:06; Start 04/19/19 at 14:15 Active Scripts Active Ibuprofen 800 Mg Tablet 800 Mg PO PRN Q8HRS PRN Macrobid 100 Mg Capsule (Nitrofurantoin Monohyd/M-Cryst) 100 Mg Capsule 1 Cap PO BID Nitrofurantoin (Nitrofurantoin Macrocrystal) 100 Mg Capsule 1 Cap PO BID Macrobid 100 Mg Capsule (Nitrofurantoin Monohyd/M-Cryst) 100 Mg Capsule 1 Cap PO BID Zofran (Ondansetron Hcl) 4 Mg Tablet 4 Mg PO BID PRN [place] 5-325 Tablet (Acetaminophen/Hydrocodone Bitart) 1 Each Tablet 1 Tab PO PRN Q6HRS PRN Exam Abd: soft, mild tenderness, fundus firm Incision site: clean, dry and intact Assessment POD#1 s/p c/s Plan of Care: Continue current Tx, Mgmt CRYSTAL GARVEY Jr, MD Apr 20, 2019 13:44
--- NOTE | 2019-04-20 15:43 | NUR ---
SS received phone contact from Masha Shay at [facility] [place] in [place]. Masha reported that she would come tomorrow afternoon to visit with pt. Mother and infant RN notified.
--- NOTE | 2019-04-20 15:46 | NUR ---
SS received phone contact from Masha Shay at [facility] in [place]. Masha reported that she would come tomorrow afternoon to visit with pt. Mother and infant RN notified.
[2019-04-20 17:10] VITALS: BP 103/58
[2019-04-20] MEDS: ZOLPIDEM 5 MG TABLET. PO PRN (20:57)
[2019-04-20 21:00] VITALS: BP 112/64
[2019-04-21] MEDS: oxyCODONE/APAP 5/325 1 TAB TABLET PO PRN ×5 (01:13→21:19)
[2019-04-21] MEDS: IBUPROFEN 400 MG TABLET. PO PRN ×3 (06:29→21:19)
[2019-04-21 06:35] VITALS: BP 107/47
--- NOTE | 2019-04-21 07:45 | PDOC ---
OB Progress Note Date of Service 04/21/19 Time of Evaluation 0745 Notes Pt. feeling well. No complaints. Lab Laboratory Tests Test 04/20/19 04:50 White Blood Count 15.0 x10^3/uL (4.0-11.0) Red Blood Count 3.45 x10^6/uL (3.50-5.40) Hemoglobin 8.9 g/dL (12.0-15.5) Hematocrit 27.1 % (36.0-47.0) Mean Corpuscular Volume 79 fL (79-100) Mean Corpuscular Hemoglobin 26 pg (25-35) Mean Corpuscular Hemoglobin Concent 33 g/dL (31-37) Red Cell Distribution Width 15.3 % (11.5-14.5) Platelet Count 285 x10^3/uL (140-400) Neutrophils (%) (Auto) 72 % (31-73) Lymphocytes (%) (Auto) 20 % (24-48) Monocytes (%) (Auto) 6 % (0-9) Eosinophils (%) (Auto) 2 % (0-3) Basophils (%) (Auto) 0 % (0-3) Neutrophils # (Auto) 10.8 x10^3/uL (1.8-7.7) Lymphocytes # (Auto) 3.0 x10^3/uL (1.0-4.8) Monocytes # (Auto) 0.9 x10^3/uL (0.0-1.1) Eosinophils # (Auto) 0.4 x10^3/uL (0.0-0.7) Basophils # (Auto) 0.1 x10^3/uL (0.0-0.2) Medications Current Medications Ringer's Solution 1,000 ml @ 125 mls/hr Q8H IV Last administered on 04/19/19at 13:53; Start 04/19/19 at 07:00; Stop 04/20/19 at 07:18; Status DC Cefazolin Sodium/ Dextrose 50 ml @ 100 mls/hr 1X ONCE IV Last administered on 04/19/19at 06:47; Start 04/19/19 at 07:00; Stop 04/19/19 at 07:29; Status DC Citric Acid/ Sodium Citrate (Bicitra) 30 ml 1X ONCE PO Last administered on 04/19/19at 09:26; Start 04/19/19 at 07:00; Stop 04/19/19 at 07:01; Status DC Ondansetron HCl (Zofran) 4 mg STK-MED ONCE .ROUTE ; Start 04/19/19 at 07:29; Stop 04/19/19 at 07:29; Status DC Oxytocin (Pitocin) 10 unit STK-MED ONCE .ROUTE ; Start 04/19/19 at 07:29; Stop 04/19/19 at 07:29; Status DC Morphine Sulfate (Morphine Preservative Free) 10 mg STK-MED ONCE .ROUTE ; Start 04/19/19 at 07:29; Stop 04/19/19 at 07:29; Status DC Fentanyl Citrate (Fentanyl 2ml Vial) 100 mcg STK-MED ONCE .ROUTE ; Start 04/19/19 at 07:29; Stop 04/19/19 at 07:30; Status DC Ephedrine Sulfate (ePHEDrine PF IN SALINE SYRINGE) 50 mg STK-MED ONCE IV ; Start 04/19/19 at 07:30; Stop 04/19/19 at 07:30; Status DC Phenylephrine HCl (PHENYLEPHRINE in 0.9% NACL PF) 1 mg STK-MED ONCE IV ; Start 04/19/19 at 07:30; Stop 04/19/19 at 07:31; Status DC Sodium Chloride (Normal Saline Flush) 3 ml QSHIFT PRN IV AFTER MEDS AND BLOOD DRAWS; Start 04/19/19 at 09:15 Oxytocin/Sodium Chloride 500 ml @ 125 mls/hr CONT PRN IV EXCESSIVE POST- BLEEDING; Start 04/19/19 at 09:30; Stop 04/19/19 at 09:31; Status DC Ibuprofen (Motrin) 800 mg PRN Q4HRS PRN PO INFLAMMATION Last administered on 04/21/19at 06:29; Start 04/19/19 at 09:15 Ondansetron HCl (Zofran) 4 mg PRN Q6HRS PRN IV NAUSEA/VOMITING; Start 04/19/19 at 09:15 Docusate Sodium (Colace) 100 mg PRN BID PRN PO CONSTIPATION Last administered on 04/20/19at 19:25; Start 04/19/19 at 09:15 Al Hydroxide/Mg Hydroxide (Mylanta Plus Xs) 30 ml PRN Q4HRS PRN PO HEARTBURN / GAS; Start 04/19/19 at 09:15 Simethicone (Gas-X) 80 mg PRN AFTMEALHC PRN PO GAS / BLOATING Last administered on 04/20/19 09:58; Start 04/19/19 at 09:15 Diphenhydramine HCl (Benadryl Oral Elixir) 12.5 mg PRN Q6HRS PRN PO ITCHING; Start 04/19/19 at 09:15 Ferrous Sulfate (Feosol) 325 mg BIDWMEALS PO Last administered on 04/20/19 19:26; Start 04/19/19 at 17:00 Zolpidem Tartrate (Ambien) 5 mg PRN QHS PRN PO INSOMNIA, MAY REPEAT X1 Last administered on 04/20/19 20:57; Start 04/19/19 at 09:15 Oxycodone/ Acetaminophen (Percocet 5/325) 2 tab PRN Q4HRS PRN PO MODERATE PAIN, SEVERE PAIN Last administered on 04/21/19at 06:28; Start 04/19/19 at 09:15 Ketorolac Tromethamine (Toradol 30mg Vial) 30 mg PRN Q6HRS PRN IV PAIN Last administered on 04/19/19 10:27; Start 04/19/19 at 09:15; Stop 04/20/19 at 07:18; Status DC Diphenhydramine HCl (Benadryl) 12.5 mg PRN Q6HRS PRN IVP ITCHING Last administered on 04/19/19at 09:42; Start 04/19/19 at 09:30 Ketorolac Tromethamine (Toradol 30mg Vial) 30 mg PRN Q6HRS PRN IV PAIN; Start 04/19/19 at 10:00; Stop 04/24/19 at 09:59; Status UNV Nicotine (Nicoderm Cq 14mg) 1 patch PRN DAILY PRN TD SMOKING CESSATION Last administered on 04/19/19at 10:42; Start 04/19/19 at 10:30 Alprazolam (Xanax) 0.5 mg PRN BID PRN PO ANXIETY / AGITATION Last administered on 04/19/19at 14:06; Start 04/19/19 at 14:15 Active Scripts Active Ibuprofen 800 Mg Tablet 800 Mg PO PRN Q8HRS PRN Macrobid 100 Mg Capsule (Nitrofurantoin Monohyd/M-Cryst) 100 Mg Capsule 1 Cap PO BID Nitrofurantoin (Nitrofurantoin Macrocrystal) 100 Mg Capsule 1 Cap PO BID Macrobid 100 Mg Capsule (Nitrofurantoin Monohyd/M-Cryst) 100 Mg Capsule 1 Cap PO BID Zofran (Ondansetron Hcl) 4 Mg Tablet 4 Mg PO BID PRN [place] 5-325 Tablet (Acetaminophen/Hydrocodone Bitart) 1 Each Tablet 1 Tab PO PRN Q6HRS PRN Exam Abd: soft, non tender, fundus firm Incision site: clean, dry and intact Assessment POD#2 s/p c/s Plan of Care: Continue current Tx, Mgmt CRYSTAL GARVEY Jr, MD Apr 21, 2019 07:45
[2019-04-21] MEDS: FERROUS SULFATE 325 MG TABLET. PO SCH ×2 (09:29→21:19)
[2019-04-21] MEDS: DOCUSATE SODIUM 100 MG CAPSULE. PO PRN ×2 (09:29→21:19)
[2019-04-21] MEDS ORDERED: ONDANSETRON ODT 4 MG TAB.RAPDIS. PO PRN (12:15)
[2019-04-21 14:04] VITALS: BP 114/75
[2019-04-21 18:17] VITALS: BP 108/58
[2019-04-21 21:15] VITALS: BP 113/83
[2019-04-21] MEDS: ZOLPIDEM 5 MG TABLET. PO PRN (21:19)
[2019-04-21] MEDS ORDERED: ALPRAZolam 0.25 MG TABLET PO PRN (21:30)
[2019-04-22 04:00] VITALS: BP 104/54
[2019-04-22] MEDS: IBUPROFEN 400 MG TABLET. PO PRN ×2 (04:00→11:51)
[2019-04-22] MEDS: oxyCODONE/APAP 5/325 1 TAB TABLET PO PRN ×2 (04:00→11:51)
--- NOTE | 2019-04-22 10:13 | PDOC3 ---
OB DISCHARGE SUMMARY DATE OF ADMISSION: 04/19/19 DATE OF DISCHARGE: 04/22/19 REASON FOR ADMISSION: section INTRAPARTUM PROCEDURES: : Low Cerv Trans DISCHARGE DIAGNOSIS: Placenta Previa DISCHARGE INFORMATION: Activity (ad devon), Diet (regular diet), Instructions (pelvic rest x 6 wks, no driving x 2 wks, no lifting> 20lbs. x 4 wks) HOSPITAL COURSE Term gestation delivered via section at 36 wks gestation due to placenta previa delivered without complications. CRYSTAL GARVEY Jr, MD Apr 22, 2019 10:13
[2019-04-22] MEDS ORDERED: DOCU100C28 PO (10:15)
[2019-04-22] MEDS ORDERED: Nicotine 14MG TD (10:15)
[2019-04-22] MEDS ORDERED: HYDR-3164 PO (10:15)
[2019-04-22] MEDS ORDERED: IBUP800T19 PO (10:15)
--- NOTE | 2019-04-22 10:16 | DISCH ---
DISCHARGE INSTRUCTIONS Condition on Discharge Condition on Discharge: Stable Activity After Discharge Activity Instructions for Disc: Activity as tolerated, Other, see below Lifting Instructions after Dis: No heavy lifting Driving Instructions after Dis: No driving for 2 weeks Diet after Discharge Diet after Discharge: Regular Contacting the after DC Call your doctor for: Concerns you may have Follow-Up Follow up with: Dr. Guzmán in 2 wks CRYSTAL GUZMÁN Jr, MD Apr 22, 2019 10:15
--- NOTE | 2019-04-22 10:32 | NUR ---
home instructions gone over with patient and signed has no questions on home care. has appt set. gave percocet and ibuprofen for pain scripts
[2019-04-22 10:34] VITALS: BP 110/68
--- NOTE | 2019-04-22 12:32 | NUR ---
SS following up with D[facility]. SS received notification that can discharge to home with mother. Infant RN notified.
== END 2019-04-22 14:19 | disposition home or self-care (01) | DRG 787 ==
LOC: 3 SO LND 06:08 → 3 NORTH 11:45
PROVIDERS: ADMIT Obstetrics & Gynecology; ATTEND Obstetrics & Gynecology
PROC: 10D00Z1 Extraction of Products of Conception, Low, Open Approach (ICD-10-PCS; principal; 2019-04-19)
DX: O44.03 Complete placenta previa NOS or without hemorrhage, third trimester (principal); R71.0 Precipitous drop in hematocrit; Z3A.36 36 weeks gestation of pregnancy; Z37.0 Single live birth; O99.824 Streptococcus B carrier state complicating childbirth; O77.0 Labor and delivery complicated by meconium in amniotic fluid; O75.89 Other specified complications of labor and delivery
CPT/HCPCS: 36415; 80307; 85025; 85027; 86592; 86850; 86900; 86901; 86920; J0171; J0696; J1200; J1885; J2274; J2370; J2405; J2590; J3010; J7120; Q0162; G0378

== ENCOUNTER → 2019-12-13 | Outpatient (CLI) | payer OTHER ==
[~2019-12-13] MED LIST changes: +DOCU100C28 PO; +Nicotine 14MG TD
--- NOTE | 2019-12-13 17:16 | RAD ---
OB ultrasound greater than 14 weeks 12/13/2019 Clinical History: Second trimester . Technique: A real-time ultrasound examination of the gravid uterus was performed. Multiple images were obtained. Findings: This study is limited to some degree due to the patient's large body habitus. There is a single living IUP. The fetus is in a transverse position. cardiac and somatic activity is seen. The heart rate is 140 beats per minutes. The maternal cervix is closed. It measures 4.5 cm in length. The placenta is in an anterior position. No abnormality is seen. The amniotic fluid volume is within normal limits. Neither maternal ovary is visualized. The following measurements were obtained: BPD 3.75cm 17 weeks 3 days HC 14.19 cm 17weeks 3 days AC 12.75 cm 18weeks 2 days FL 2.75 cm 18 weeks 3 days The estimated gestational age by ultrasound is 17 weeks 6 days plus or minus a standard deviation of 10 days. The estimated date of delivery by ultrasound is 05/16/2020. Detailed evaluation of anatomy is limited due to the patient's large body habitus. The heart, spine and cerebellum are normal well-visualized. The stomach, bladder, kidneys, 3 vessel cord and cord insertion are well-visualized and within normal limits. Impression: Single living IUP with an estimated gestational age by ultrasound of 17 weeks6 days +/- a standard deviation of 10 days. The estimated date of delivery by ultrasound is05/16/2020. Electronically signed by: Juvenal Irby MD (12/13/2019 5:13 PM) [id number]
== END | disposition home or self-care (01) ==
LOC: US 14:23
PROVIDERS: ATTEND Obstetrics & Gynecology
DX: Z34.92 Encounter for supervision of normal pregnancy, unspecified, second trimester (principal); Z3A.17 17 weeks gestation of pregnancy
CPT/HCPCS: 76805